=== PATIENT | female | born 1965 | race Caucasian/White ===

== ENCOUNTER 2017-01-21 05:58 | Day surgery (SDC) | payer BC ==
--- NOTE | ~2017-01-21 | EGD ---
EGD REPORT [address] [id number] NAME: ROMAN RIVAS : [birth year] STATUS : REG [facility]#: [id number] AGE: 51 ADM/REG DATE : 01/21/17 MR#: [id number] REPORT SERV DATE: 01/21/17 DICTATED BY: DATE: REPORT STATUS : Draft TRANSCRIBED BY: [employer] DATE: 01/21/17 [facility] Patient Name: Roman Rivas Date of : 1965 Attending MD: LAKSHMI ARAIZA MD Procedure Date No Time: 01/21/2017 Procedure: Colonoscopy Indications: High risk colon cancer surveillance: Ulcerative colitis with known dysplasia, High risk colon cancer surveillance: Ulcerative pancolitis of 8+ years duration Referring MD: KATY ROBLES Medicines: Monitored Anesthesia Care Complications: No immediate complications. Procedure: Pre-Anesthesia Assessment: - ASA Grade Assessment: II - A patient with mild systemic disease. After I obtained informed consent, the scope was passed under direct vision. Throughout the procedure, the patient's blood pressure, pulse, and oxygen saturations were monitored continuously. The [facility] H190L [id number] was introduced through the anus and advanced to the cecum, identified by appendiceal orifice and ileocecal valve. The colonoscopy was performed without difficulty. The patient tolerated the procedure well. The quality of the bowel preparation was excellent. Findings: The perianal and digital rectal examinations were normal. A flat polyp was found at 30 cm proximal to the anus. The polyp was 12 mm in size. The polyp was removed with a cold snare. Resection and retrieval were complete. A few small-mouthed diverticula were found in the sigmoid colon. No other significant abnormalities were identified in a careful examination of the remainder of the colon. There is no endoscopic evidence of inflammation, mass, polyps or ulcerations in the entire colon. Staining chromoscopy with methylene blue was performed. Four biopsies were taken every 10 cm with a cold forceps from the entire colon. These biopsy specimens were sent to Pathology. The region of 60 cm from the anal verge was oversampled (area of previous LGD). The discrete lesions were seen. No additional abnormalities were found on retroflexion. Impression: - One 12 mm polyp at 30 cm proximal to the anus. Resected and retrieved. EGD REPORT [address] [address] NAME: ROMAN RIVAS : [birth year] STATUS : REG [facility]#: [id number] AGE: 51 ADM/REG DATE : 01/21/17 MR#: [id number] REPORT SERV DATE: 01/21/17 DICTATED BY: DATE: REPORT STATUS : Draft TRANSCRIBED BY: [employer] DATE: 01/21/17 - Diverticulosis in the sigmoid colon. Recommendation: - Patient has a contact number available for emergencies. The signs and symptoms of potential delayed complications were discussed with the patient. Return to normal activities tomorrow. Written discharge instructions were provided to the patient. - Regular diet. - Continue present medications. - Await pathology results. - Repeat colonoscopy in 3 months for surveillance. - Chromoendoscopy with methylene blue for each procedure. Procedure Code(s): --- Professional --- 20722, Colonoscopy, flexible, proximal to splenic flexure; with removal of tumor(s), polyp(s), or other lesion(s) by snare technique 37043, 59, Colonoscopy, flexible, proximal to splenic flexure; with biopsy, single or multiple 47961, Unlisted procedure, intestine Diagnosis Code(s): --- Professional --- D12.6, Benign neoplasm of colon, unspecified K57.30, Diverticulosis of large intestine without perforation or abscess without bleeding K51.90, Ulcerative colitis, unspecified, without complications K51.00, Ulcerative (chronic) pancolitis without complications CPT copyright 2013 [employer]. All rights reserved. The codes documented in this report are preliminary and upon ethics officer review may be revised to meet current compliance requirements. LAKSHMI ARAIZA MD 01/21/2017 7:42 AM This report has been signed electronically. Number of Addenda: 0 Note Initiated On: 01/21/2017 6:58 AM Scope Withdrawal Time 0 hours 23 minutes 39 seconds [address] [id number]
--- NOTE | ~2017-01-21 | EGD ---
EGD REPORT [facility] [address] [address] NAME: ROMAN RIVAS : [birth year] STATUS : [facility]#: [id number] AGE: 51 ADM/REG DATE : 01/21/17 MR#: [id number] REPORT SERV DATE: 01/27/17 DICTATED BY: DATE: REPORT STATUS : Draft TRANSCRIBED BY: [employer] DATE: 01/27/17 [facility] Patient Name: Roman Rivas Date of : 1965 Attending MD: LAKSHMI ARAIZA MD Procedure Date No Time: 01/21/2017 Procedure: Colonoscopy Indications: High risk colon cancer surveillance: Ulcerative colitis with known dysplasia, High risk colon cancer surveillance: Ulcerative pancolitis of 8+ years duration Referring MD: KATY ROBLES Medicines: Monitored Anesthesia Care Complications: No immediate complications. Procedure: Pre-Anesthesia Assessment: - ASA Grade Assessment: II - A patient with mild systemic disease. After I obtained informed consent, the scope was passed under direct vision. Throughout the procedure, the patient's blood pressure, pulse, and oxygen saturations were monitored continuously. The [facility] H190L [id number] was introduced through the anus and advanced to the cecum, identified by appendiceal orifice and ileocecal valve. The colonoscopy was performed without difficulty. The patient tolerated the procedure well. The quality of the bowel preparation was excellent. Findings: The perianal and digital rectal examinations were normal. A flat polyp was found at 30 cm proximal to the anus. The polyp was 12 mm in size. The polyp was removed with a cold snare. Resection and retrieval were complete. A few small-mouthed diverticula were found in the sigmoid colon. No other significant abnormalities were identified in a careful examination of the remainder of the colon. There is no endoscopic evidence of inflammation, mass, polyps or ulcerations in the entire colon. Staining chromoscopy with methylene blue was performed. Four biopsies were taken every 10 cm with a cold forceps from the entire colon. These biopsy specimens were sent to Pathology. The region of 60 cm from the anal verge was oversampled (area of previous LGD). The discrete lesions were seen. No additional abnormalities were found on retroflexion. Impression: - One 12 mm polyp at 30 cm proximal to the anus. Resected and retrieved. EGD REPORT [address] [address] NAME: ROMAN RIVAS : [birth year] STATUS : [facility]#: [id number] AGE: 51 ADM/REG DATE : 01/21/17 MR#: [id number] REPORT SERV DATE: 01/27/17 DICTATED BY: DATE: REPORT STATUS : Draft TRANSCRIBED BY: [employer] DATE: 01/27/17 - Diverticulosis in the sigmoid colon. Recommendation: - Patient has a contact number available for emergencies. The signs and symptoms of potential delayed complications were discussed with the patient. Return to normal activities tomorrow. Written discharge instructions were provided to the patient. - Regular diet. - Continue present medications. - Await pathology results. - Repeat colonoscopy in 3 months for surveillance. - Chromoendoscopy with methylene blue for each procedure. Procedure Code(s): --- Professional --- 74578, Colonoscopy, flexible, proximal to splenic flexure; with removal of tumor(s), polyp(s), or other lesion(s) by snare technique 47431, 59, Colonoscopy, flexible, proximal to splenic flexure; with biopsy, single or multiple 19084, Unlisted procedure, intestine Diagnosis Code(s): --- Professional --- D12.6, Benign neoplasm of colon, unspecified K57.30, Diverticulosis of large intestine without perforation or abscess without bleeding K51.90, Ulcerative colitis, unspecified, without complications K51.00, Ulcerative (chronic) pancolitis without complications CPT copyright 2013 [employer]. All rights reserved. The codes documented in this report are preliminary and upon tester operator helper review may be revised to meet current compliance requirements. LAKSHMI RAAIZA MD 01/21/2017 7:42 AM This report has been signed electronically. Number of Addenda: 0 Note Initiated On: 01/21/2017 6:58 AM Scope Withdrawal Time 0 hours 23 minutes 39 seconds [address] [id number]
[~2017-01-21 05:58] MED LIST: ATV1 PO; BYSTOLIC5 MG PO; CALTRA600D PO; CELEXA10 PO; ESTRACE1 MG PO; FOLIC PO; LIALDA1.2 GM PO; MULTIPLE VIT PO; NEXIUM40 PO; SYN.05 PO; VIVELLE-DOT0.1 MG TOP; ZOVI200CAP PO
== END 2017-01-21 23:59 | disposition home or self-care (01) ==
LOC: DMU 05:58
PROVIDERS: Internal Medicine Gastroenterology
PROC: 0DBH8ZZ Excision of Cecum, Via Natural or Artificial Opening Endoscopic (ICD-10-PCS; principal; 2017-01-21 07:00)
PROC: 0DBE8ZX Excision of Large Intestine, Via Natural or Artificial Opening Endoscopic, Diagnostic (ICD-10-PCS; 2017-01-21 07:00)
DX: K63.5 Polyp of colon (principal); K51.00 Ulcerative (chronic) pancolitis without complications; K57.30 Diverticulosis of large intestine without perforation or abscess without bleeding; K90.0 Celiac disease; K21.9 Gastro-esophageal reflux disease without esophagitis; E03.9 Hypothyroidism, unspecified; F41.9 Anxiety disorder, unspecified; F32.9 Major depressive disorder, single episode, unspecified; M41.9 Scoliosis, unspecified; M43.10 Spondylolisthesis, site unspecified; N60.19 Diffuse cystic mastopathy of unspecified breast; Z88.5 Allergy status to narcotic agent; Z88.1 Allergy status to other antibiotic agents; Z79.818 Long term (current) use of other agents affecting estrogen receptors and estrogen levels; Z79.899 Other long term (current) drug therapy; Z90.49 Acquired absence of other specified parts of digestive tract; Z90.710 Acquired absence of both cervix and uterus; Z98.890 Other specified postprocedural states
CPT/HCPCS: 88305